=== PATIENT | female | born 1995 | race Hispanic/Latino ===

== ENCOUNTER 2017-11-16 20:04 | Emergency (ER) | payer MEDICAID, OTHER ==
[2017-11-16] MEDS ORDERED: ONDANSETRON HCL 4 MG/2 ML VIAL ONE (20:23)
[2017-11-16] MEDS ORDERED: SODIUM CHLORIDE 0.9% 1000ML 1,000 ML IV ONE (20:23)
[2017-11-16] MEDS ORDERED: INSULIN HUMULIN R 100 UNIT/ML 3ML ONE (20:24)
[2017-11-16 20:35] LABS: BASOPHILS % (AUTO) 0.6 % (0.0-5.0); EOSINOPHILS % (AUTO) 1.2 % (0.0-8.0); HEMATOCRIT 44.4 % (36-48); LYMPHOCYTES % (AUTO) 23.2 % (21.0-51.0); MEAN CORPUSCULAR HEMOGLOBIN 31.2 pg (27.0-33.0); MEAN CORPUSCULAR VOLUME 91.7 fL (80-100); MONOCYTES % (AUTO) 5.5 % (3.0-13.0); NEUTROPHILS % (AUTO) 69.5 % (40.0-77.0); PLATELET COUNT (AUTO) 349 K/uL (130-400); RED BLOOD CELL COUNT(AUTO) 4.83 MIL/uL (4.00-5.50); RED CELL DISTRIBUTION WIDTH 12.6 % (11.0-15.5)
[2017-11-16 20:37] LABS: APPEARANCE,URINE Clear (CLEAR); BILIRUBIN,URINE Negative (NEGATIVE); COLOR,URINE Yellow (YELLOW); GLUCOSE, URINE (UA) >=1000 mg/dL (NEGATIVE); KETONES,URINE 15 mg/dL (NEGATIVE); LEUKOCYTE ESTERASE ,URINE Trace (NEGATIVE); NITRATE,URINE Negative (NEGATIVE); OCCULT BLOOD,URINE Negative (NEGATIVE); PROTEIN,URINE Negative (NEGATIVE); UROBILINOGEN,URINE 0.2 mg/dL (0.2-1.0)
[2017-11-16 20:40] LABS: HCG,QUAL RESULT NEGATIVE (NEGATIVE)
[2017-11-16 20:45] LABS: BACTERIA,URINE Rare /HPF (None Seen); RBC,URINE None Seen /HPF (0-1); SQUAMOUS EPITHELIAL CELL,UR 0-2 /HPF (0-2); WBC,URINE 0-1 /HPF (0-1)
[2017-11-16 20:48] LABS: ACETONE,BLOOD NEGATIVE (NEGATIVE)
[2017-11-16 20:49] LABS: CARBON DIOXIDE 23 mmol/L (21-32); CHLORIDE 99 mmol/L (101-111); CREATININE 0.8 mg/dL (0.5-1.5); GLOMERULAR FILTR. RATE CALC 96 mL/min (>60); GLUCOSE,RANDOM 384 mg/dL (70-105); POTASSIUM 5.1 mmol/L (3.5-5.1); SODIUM SERUM 134 mmol/L (136-145); UREA NITROGEN, BLOOD 16 mg/dL (7-18)
[2017-11-16 20:53] LABS: ALANINE AMINOTRANSFERASE 25 U/L (12-78); ALBUMIN 4.1 g/dL (3.5-5.0); ASPARTATE AMINOTRANSFERASE 13 U/L (10-37); BILIRUBIN,TOTAL 0.1 mg/dL (0.2-1.0); LIPASE 128 U/L (114-286); TOTAL PROTEIN, SERUM 7.8 g/dL (6.0-8.3)
[2017-11-16 21:02] LABS: ABG BASE EXCESS -3.9 mmol/L (-2.0-3.0); ABG HCO3 20.6 mmol/L (21.0-28.0); ABG OXYGEN SATURATION 96.7 % (95.0-99.0); ABG PCO2 36 mmHg (32-45)
== END 2017-11-16 22:06 | disposition home or self-care (01) ==
LOC: EDH 20:04
DX: E11.65 Type 2 diabetes mellitus with hyperglycemia (principal)
CPT/HCPCS: 36415; 36600; 80053; 81001; 81025; 82009; 82803; 82948 ×2; 83690; 84703; 85025; 96374; 96375; 99284; J1815; J2405; J7030

== ENCOUNTER 2018-12-17 00:19 | Emergency (ER) | payer OTHER ==
[2018-12-17 00:48] LABS: BASOPHILS % (AUTO) 0.4 % (0.0-5.0); EOSINOPHILS % (AUTO) 2.3 % (0.0-8.0); HEMATOCRIT 45.3 % (36-48); LYMPHOCYTES % (AUTO) 32.6 % (21.0-51.0); MEAN CORPUSCULAR HEMOGLOBIN 31.1 pg (27.0-33.0); MEAN CORPUSCULAR HGB CONC 34.1 g/dL (32.0-36.0); MEAN CORPUSCULAR VOLUME 91.2 fL (79-99); MONOCYTES % (AUTO) 13.1 % (3.0-13.0); NEUTROPHILS % (AUTO) 51.6 % (40.0-77.0); PLATELET COUNT (AUTO) 363 K/uL (130-400); RED BLOOD CELL COUNT(AUTO) 4.97 MIL/uL (4.00-5.50); RED CELL DISTRIBUTION WIDTH 12.6 % (11.0-15.5); WHITE BLOOD COUNT (AUTO) 8.4 K/uL (4.8-10.8)
[2018-12-17] MEDS ORDERED: INSULIN HUMULIN R 100 UNIT/ML 3ML ONE (00:50)
[2018-12-17] MEDS ORDERED: SODIUM CHLORIDE 0.9% 1000ML 1,000 ML IV ONE (00:50)
[2018-12-17 00:51] LABS: APPEARANCE,URINE Clear (CLEAR); BILIRUBIN,URINE Negative (NEGATIVE); COLOR,URINE Yellow (YELLOW); GLUCOSE, URINE (UA) >=1000 mg/dL (NEGATIVE); KETONES,URINE Negative (NEGATIVE); LEUKOCYTE ESTERASE ,URINE Negative (NEGATIVE); NITRATE,URINE Negative (NEGATIVE); OCCULT BLOOD,URINE Negative (NEGATIVE); PH,URINE 5.5 (5.0-8.0); PROTEIN,URINE Negative (NEGATIVE)
[2018-12-17 00:53] LABS: HCG,QUAL RESULT NEGATIVE (NEGATIVE)
[2018-12-17 00:56] LABS: CREATININE 0.7 mg/dL (0.5-1.5); POTASSIUM 4.1 mmol/L (3.5-5.1)
[2018-12-17 01:04] LABS: ALBUMIN 3.9 g/dL (3.5-5.0); BILIRUBIN,TOTAL 0.2 mg/dL (0.2-1.0); TOTAL PROTEIN, SERUM 7.8 g/dL (6.0-8.3)
[2018-12-17 01:08] LABS: AMPHET/METH SCREEN,URINE NEGATIVE (NEGATIVE); BARBITURATE SCREEN, URINE NEGATIVE (NEGATIVE); BENZODIAZEPINES SCREEN,URINE NEGATIVE (NEGATIVE); CANNABINOID SCREEN,URINE NEGATIVE (NEGATIVE); COCAINE SCREEN,URINE NEGATIVE (NEGATIVE); OPIATE SCREEN,URINE NEGATIVE (NEGATIVE); PHENCYCLIDINE SCREEN,URINE NEGATIVE (NEGATIVE)
[2018-12-17 01:24] LABS: BACTERIA,URINE Few /HPF (None Seen); RBC,URINE 0-1 /HPF (0-1); WBC,URINE 0-1 /HPF (0-1)
[2018-12-17 01:33] LABS: ALCOHOL, BLOOD < 3 mg/dL (0-10)
== END 2018-12-17 02:56 | disposition home or self-care (01) ==
LOC: EDH 00:19
DX: E11.65 Type 2 diabetes mellitus with hyperglycemia (principal); Z91.14 Patient's other noncompliance with medication regimen
CPT/HCPCS: 36415; 70450; 80053; 80305; 81001; 81025; 82010; 82948 ×2; 85025; 93005; 96361; 96374; 99285; G0480; J1815; J7030

== ENCOUNTER 2019-09-27 12:05 | Observation (INO) | payer MEDICAID, OTHER ==
[~2019-09-27] VITALS: Ht 154.9 cm; Wt 74.4 kg
[2019-09-27 13:24] VITALS: BP 144/85
[2019-09-27] MEDS ORDERED: METF-446 PO (13:58)
[2019-09-27] MEDS ORDERED: PREN-154 PO (13:58)
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
[2019-09-27 15:33] VITALS: BP 124/81
[2019-09-27] MEDS ORDERED: INSULIN HUMULIN R 100 UNIT/ML 3ML SQ SCH (16:30)
[2019-09-27] MEDS: METFORMIN HCL 500 MG TABLET PO SCH (17:06)
--- NOTE | 2019-09-27 17:20 | NUR ---
DIABETIC TEACHING PT TAUGHT HOW TO DRAW UP AND SELF ADMINISTER INSULIN. INSTRUCTED TO DO HANDWASHING BEFORE AND AFTER, TO CLEAN SITES APPROPRIATELY, AND INFORMATION WAS GIVEN ON THE SITES OF WHERE TO INJECT. LITERATURE PROVIDED FOR PT. PT VERBALIZED UNDERSTANDING AND WILL CONTINUE TEACHING THROUGHOUT STAY FOR REINFORCEMENT.
[2019-09-27 20:15] VITALS: BP 115/76
[2019-09-27] MEDS ORDERED: INSULIN NPH 100 UNIT/ML 3ML SQ SCH (21:00)
[2019-09-28 00:08] VITALS: BP 112/68
[2019-09-28 04:06] VITALS: BP 103/60
--- NOTE | 2019-09-28 07:17 | NUR ---
NUTRITION EDUCATION [facility] provided Gestational Diabetes Nutrition Education to Pt. [facility] provided reference materials and handouts. Pt with multiple questions. [facility] answered all Pt questions. [facility] encouraged to notify as additional questions or concerns arise. Addendum: 09/28/19 at [address] Amended: Links added.
[2019-09-28 07:18] VITALS: BP 124/67
[2019-09-28] MEDS ORDERED: INSULIN NPH 100 UNIT/ML 3ML SQ SCH ×2 (07:30→21:00)
[2019-09-28] MEDS ORDERED: INSULIN HUMULIN R 100 UNIT/ML 3ML SQ SCH ×2 (07:30→16:30)
[2019-09-28] MEDS: METFORMIN HCL 500 MG TABLET PO SCH ×2 (09:12→16:53)
--- NOTE | 2019-09-28 09:15 | NUR ---
DR. POWELL ROUNDED ON PATIENT AND NEW INSULIN ORDERS GIVEN. INCREASED ALL INSULINS BY 10 UNITS. PATIENT CAN BE DISCHARGED THIS EVENING IF GLUCOSE ARE LOWER.
[2019-09-28 11:20] VITALS: BP 117/75
[2019-09-28 15:24] VITALS: BP 106/67
[2019-09-28] MEDS ORDERED: INSULIN HUMULIN R 100 UNIT/ML 3ML ONE (16:47)
--- NOTE | 2019-09-28 18:15 | NUR ---
DISCHARGED INSTRUCTIONS GIVEN AND VERBALIZED UNDERSTANDING INSTRUCTIONS GIVEN.
--- NOTE | 2019-09-28 18:50 | NUR ---
SPOKE TO DR. POWELL AND WAS MADE AWARE OF PATIENT HAVING PROBLEMS OBTAINING INSULINS AND MIGHT BE HAVING TO STAY OVERNIGHT. FLU VACCINE ORDERED AND GIVEN PER DR. POWELL ORDERS. DISCHARGE INSTRUCTIONS ALREADY GIVEN, BUT INDICATED HAVING PROBLEMS AFTER SHE WAS DISCHARGED.
[2019-09-28 19:16] VITALS: BP 117/79
--- NOTE | 2019-09-28 19:40 | NUR ---
PATIENT WAS TAKEN VIA WC TO FAMILY VEHICLE IN STABLE CONDITION. PATIENT INDICATED BOYFRIEND WAS ABLE TO OBTAIN BOTH INSULINS THE REGULAR AND NPH.
[2019-09-28] MEDS ORDERED: FLU VACC QS2019-20 36MOS UP/PF 60 MCG/0.5 ML ML IM ONE (20:00)
[2019-09-29] MEDS ORDERED: INSULIN NPH 100 UNIT/ML 3ML SQ SCH (07:30)
[2019-09-29] MEDS ORDERED: INSULIN HUMULIN R 100 UNIT/ML 3ML SQ SCH (07:30)
== END 2019-09-28 19:40 | disposition home or self-care (01) ==
LOC: EDH 12:05 → WSH 12:06
PROVIDERS: ADMIT Obstetrics & Gynecology; ATTEND Obstetrics & Gynecology
DX: O24.911 Unspecified diabetes mellitus in pregnancy, first trimester (principal); O99.331 Smoking (tobacco) complicating pregnancy, first trimester; Z3A.01 Less than 8 weeks gestation of pregnancy; Z23 Encounter for immunization
CPT/HCPCS: 82948 ×11; 90471; 96372 ×2; 99284; G0378 ×13; J1815 ×5; Q2035; 90686; G0008

== ENCOUNTER 2019-09-30 17:22 | Emergency (ER) | payer MEDICAID, OTHER ==
[~2019-09-30 17:22] MED LIST: METF-446 PO; PREN-154 PO
[2019-09-30 18:09] LABS: BASOPHILS % (AUTO) 0.3 % (0.0-5.0); HEMATOCRIT 40.3 % (36-48); LYMPHOCYTES % (AUTO) 25.6 % (21.0-51.0); MEAN CORPUSCULAR HEMOGLOBIN 30.5 pg (27.0-33.0); MEAN CORPUSCULAR HGB CONC 33.3 g/dL (32.0-36.0); MEAN CORPUSCULAR VOLUME 91.8 fL (79-99); MONOCYTES % (AUTO) 12.1 % (3.0-13.0); NEUTROPHILS % (AUTO) 59.6 % (40.0-77.0); PLATELET COUNT (AUTO) 295 K/uL (130-400); RED BLOOD CELL COUNT(AUTO) 4.39 MIL/uL (4.00-5.50); RED CELL DISTRIBUTION WIDTH 11.9 % (11.0-15.5); WHITE BLOOD COUNT (AUTO) 9.4 K/uL (4.8-10.8)
[2019-09-30 18:20] LABS: CREATININE 0.6 mg/dL (0.5-1.5); POTASSIUM 4.1 mmol/L (3.5-5.1)
[2019-09-30 18:50] LABS: ALBUMIN 3.3 g/dL (3.5-5.0); BILIRUBIN,TOTAL 0.1 mg/dL (0.2-1.0); TOTAL PROTEIN, SERUM 6.7 g/dL (6.0-8.3)
== END 2019-09-30 19:41 | disposition home or self-care (01) ==
LOC: EDH 17:22
DX: O20.0 Threatened abortion (principal); E11.9 Type 2 diabetes mellitus without complications; Z87.891 Personal history of nicotine dependence; Z3A.01 Less than 8 weeks gestation of pregnancy
CPT/HCPCS: 36415; 76801; 80053; 84702; 85025; 86900; 86901

== ENCOUNTER 2020-09-09 22:20 | Observation (INO) | payer MEDICAID ==
[~2020-09-09] VITALS: Ht 154.9 cm; Wt 91.2 kg
[2020-09-09] MEDS ORDERED: SODIUM CHLORIDE 0.9% 1000ML 1,000 ML IV ONE (22:38)
[2020-09-09] MEDS ORDERED: ONDANSETRON HCL 4 MG/2 ML VIAL ONE (22:38)
[2020-09-09 22:57] LABS: BASOPHILS % (AUTO) 0.3 % (0.0-5.0); EOSINOPHILS % (AUTO) 1.7 % (0.0-8.0); HEMATOCRIT 38.3 % (36-48); LYMPHOCYTES % (AUTO) 27.6 % (21.0-51.0); MEAN CORPUSCULAR HEMOGLOBIN 30.1 pg (27.0-33.0); MEAN CORPUSCULAR HGB CONC 33.2 g/dL (32.0-36.0); MEAN CORPUSCULAR VOLUME 90.8 fL (79-99); MONOCYTES % (AUTO) 7.4 % (3.0-13.0); NEUTROPHILS % (AUTO) 62.5 % (40.0-77.0); PLATELET COUNT (AUTO) 333 K/uL (130-400); RED BLOOD CELL COUNT(AUTO) 4.22 MIL/uL (4.00-5.50); RED CELL DISTRIBUTION WIDTH 12.6 % (11.0-15.5)
[2020-09-09 23:13] LABS: CREATININE 0.5 mg/dL (0.5-1.5); POTASSIUM 3.7 mmol/L (3.5-5.1)
[2020-09-09 23:20] LABS: INR 0.92 (0.85-1.15); PROTHROMBIN TIME 10.1 SEC (9.6-11.6)
[2020-09-09 23:22] LABS: PARTIAL THROMBOPLASTIN TIME 24.8 SEC (26.3-35.5)
[2020-09-09 23:31] LABS: APPEARANCE,URINE Clear (CLEAR); BILIRUBIN,URINE Negative (NEGATIVE); COLOR,URINE Yellow (YELLOW); GLUCOSE, URINE (UA) >=1000 mg/dL (NEGATIVE); KETONES,URINE Trace mg/dL (NEGATIVE); LEUKOCYTE ESTERASE ,URINE Negative (NEGATIVE); NITRATE,URINE Negative (NEGATIVE); OCCULT BLOOD,URINE Negative (NEGATIVE); PH,URINE 5.5 (5.0-8.0); PROTEIN,URINE Negative (NEGATIVE)
[2020-09-09 23:38] LABS: BACTERIA,URINE None Seen /HPF (None Seen); RBC,URINE 0-1 /HPF (0-1); SQUAMOUS EPITHELIAL CELL,UR Few /HPF (0-2); WBC,URINE 0-1 /HPF (0-1); YEAST,URINE BUDDING None Seen /HPF (None Seen)
[2020-09-09 23:40] LABS: ALBUMIN 3.2 g/dL (3.5-5.0); BILIRUBIN,TOTAL 0.2 mg/dL (0.2-1.0); TOTAL PROTEIN, SERUM 7.1 g/dL (6.0-8.3)
== END 2020-09-10 02:00 | disposition home or self-care (01) ==
LOC: EDH 22:20 → LDH 22:21 → EDH 09-10 00:28
PROVIDERS: ADMIT Obstetrics & Gynecology; ATTEND Obstetrics & Gynecology
DX: O9A.212 Injury, poisoning and certain other consequences of external causes complicating pregnancy, second trimester (principal); S30.1XXA Contusion of abdominal wall, initial encounter; O46.92 Antepartum hemorrhage, unspecified, second trimester; O24.112 Pre-existing type 2 diabetes mellitus, in pregnancy, second trimester; E11.9 Type 2 diabetes mellitus without complications; W10.8XXA Fall (on) (from) other stairs and steps, initial encounter; Y93.89 Activity, other specified; Y92.093 Driveway of other non-institutional residence as the place of occurrence of the external cause; Z3A.20 20 weeks gestation of pregnancy
CPT/HCPCS: 36415; 59025; 76805; 80053; 81001; 83605; 83690; 84702; 85025; 85610; 85730; 86850; 86900; 86901; 99284; G0378; J2405; J7030

== ENCOUNTER 2021-07-06 22:15 | Emergency (ER) | payer MEDICAID ==
[~2021-07-06] VITALS: Ht 157.5 cm; Wt 80.7 kg
[2021-07-06 23:20] LABS: APPEARANCE,URINE Cloudy (CLEAR); BILIRUBIN,URINE Negative (NEGATIVE); COLOR,URINE Yellow (YELLOW); GLUCOSE, URINE (UA) >=1000 mg/dL (NEGATIVE); KETONES,URINE Negative (NEGATIVE); LEUKOCYTE ESTERASE ,URINE Moderate (NEGATIVE); NITRATE,URINE Negative (NEGATIVE); OCCULT BLOOD,URINE Negative (NEGATIVE); PROTEIN,URINE Trace mg/dL (NEGATIVE)
[2021-07-06 23:27] LABS: BASOPHILS % (AUTO) 0.4 % (0.0-5.0); EOSINOPHILS % (AUTO) 2.2 % (0.0-8.0); HEMATOCRIT 43.7 % (36-48); LYMPHOCYTES % (AUTO) 33.1 % (21.0-51.0); MEAN CORPUSCULAR HEMOGLOBIN 29.9 pg (27.0-33.0); MEAN CORPUSCULAR HGB CONC 33.4 g/dL (32.0-36.0); MEAN CORPUSCULAR VOLUME 89.4 fL (79-99); MONOCYTES % (AUTO) 8.3 % (3.0-13.0); NEUTROPHILS % (AUTO) 55.5 % (40.0-77.0); PLATELET COUNT (AUTO) 324 K/uL (130-400); RED BLOOD CELL COUNT(AUTO) 4.89 MIL/uL (4.00-5.50); RED CELL DISTRIBUTION WIDTH 12.5 % (11.0-15.5)
[2021-07-06 23:36] LABS: CREATININE 0.6 mg/dL (0.5-1.5); POTASSIUM 4.5 mmol/L (3.5-5.1)
[2021-07-06 23:40] LABS: BACTERIA,URINE Rare /HPF (None Seen); RBC,URINE None Seen /HPF (0-1); SQUAMOUS EPITHELIAL CELL,UR Moderate /HPF (0-2); YEAST,URINE BUDDING None Seen /HPF (None Seen)
[2021-07-06 23:43] LABS: ALBUMIN 3.7 g/dL (3.5-5.0); BILIRUBIN,TOTAL 0.3 mg/dL (0.2-1.0); TOTAL PROTEIN, SERUM 7.5 g/dL (6.0-8.3)
[2021-07-07] MEDS ORDERED: LIDOCAINE HCL 400MG/20ML VIAL ONE (00:46)
[2021-07-07] MEDS ORDERED: IBUPROFEN 600 MG TABLET PO ONE (02:00)
[2021-07-07] MEDS ORDERED: SULFAMETHOX-TMP DS 800/160 TAB PO SCH (02:00)
[2021-07-07] MEDS ORDERED: IBUP-2070 PO (02:13)
[2021-07-07] MEDS ORDERED: SULF1TAB42 PO (02:13)
[2021-07-07 02:20] VITALS: BP 140/88
== END 2021-07-07 02:33 | disposition home or self-care (01) ==
LOC: EDH 22:15
DX: N76.4 Abscess of vulva (principal); B37.3 Candidiasis of vulva and vagina; E11.65 Type 2 diabetes mellitus with hyperglycemia; Z79.4 Long term (current) use of insulin
CPT/HCPCS: 36415; 56405; 80053; 81001; 85025; 87088; 99284; J3490

== ENCOUNTER 2023-01-19 06:25 | Emergency (ER) | payer MEDICAID ==
[~2023-01-19] VITALS: Ht 157.5 cm; Wt 77.1 kg
[~2023-01-19 06:25] MED LIST changes: +IBUP-2070 PO; +SULF1TAB42 PO
[2023-01-19] MEDS ORDERED: FAMOTIDINE 20MG VIAL IV ONE (08:00)
[2023-01-19] MEDS ORDERED: KETOROLAC 30MG VIAL (30MG/ML) IVP ONE (08:00)
[2023-01-19] MEDS ORDERED: METOCLOPRAMIDE 10 MG/2 ML VIAL IVP ONE (08:00)
[2023-01-19 08:32] LABS: RAPID GROUP A STREP negative (NEGATIVE)
[2023-01-19 08:37] LABS: SARS-CoV-2, RNA, NAAT NEGATIVE SARS CoV-2 (NEGATIVE)
[2023-01-19 08:42] LABS: INFLUENZA TYPE A Negative For Type A (NEGATIVE); INFLUENZA TYPE B Negative For Type B (NEGATIVE)
[2023-01-19 08:50] VITALS: BP 120/79; PULSE 87; RESP 16; O2SAT 98
== END 2023-01-19 09:10 | disposition home or self-care (01) ==
LOC: EDH 06:25
DX: J02.8 Acute pharyngitis due to other specified organisms (principal); B97.89 Other viral agents as the cause of diseases classified elsewhere; E11.9 Type 2 diabetes mellitus without complications; Z20.822 Contact with and (suspected) exposure to COVID-19
CPT/HCPCS: 99284; 96374; 96375; 87635; 87880; 87804 ×2; C9803; J1885; J2765; S0028; J3490